=== PATIENT | female | born 2005 | race Caucasian/White ===

== ENCOUNTER 2024-10-30 07:54 | Emergency (ER) | payer BC ==
[2024-10-30 09:11] LABS: Absolute Basophils 0.1 K/uL (0-0.5); Absolute Eosinophils 0.2 K/uL (0-0.5); Absolute Lymphocytes (CBC) 1.6 K/uL (0.7-4.9); Absolute Monocytes 0.7 K/uL (0.1-1.3); Absolute Neutrophil 6.6 K/uL (1.8-8.0); Basophils % 0.7 % (0-1.3); Eosinophils % 1.7 % (0-4.4); Hematocrit 44.7 % (36.0-45.0); Hemoglobin 14.9 g/dL (12.0-15.0); Lymphocytes % 17.6 % (15.3-44.8); MCH 30.7 pg (27.0-35.0); MCHC 33.3 g/dL (32.0-36.0); MCV 92.1 fL (80-100); MPV 7.1 fL (7.6-11.3); Monocytes % 7.7 % (3.3-12.3); Neutrophils % 72.3 % (41.7-73.7); Nucleated Red Blood Cells % 0.1 % (0-0); Platelets 421 thou/uL (152-406); RBC Red Blood Cell Count 4.86 M/uL (3.86-4.86); Red Cell Distribution Width 13.6 % (12.1-15.2)
[2024-10-30 09:17] LABS: Specific Gravity 1.005 (1.005-1.030)
[2024-10-30 09:18] LABS: Specific Gravity 1.005 (1.005-1.030); Sqamous Epithelial <5 /HPF (None Seen); Urine Bacteria None Seen /HPF (<20); Urine Bilirubin NEGATIVE (Negative); Urine Blood Negative (Negative); Urine Clarity Turbid (Clear); Urine Color Colorless (Yellow); Urine Culture Reflex Order NOT NEEDED; Urine Glucose NEGATIVE (Negative); Urine Ketones NEGATIVE (Negative); Urine Microscopic Reflex YN ORDER UMIC; Urine Nitrite NEGATIVE (Negative); Urine Protein NEGATIVE (Negative); Urine RBC <5 /HPF (None Seen); Urine Urobilinogen Normal (Normal); Urine WBC <5 /HPF (<5)
[2024-10-30 09:26] LABS: Albumin 3.9 g/dL (3.4-5.0); Albumin/Globulin Ratio 0.9 (1.1-1.8); Anion Gap 9.9 mEq/L (5.0-15.0); Bilirubin Total 0.5 mg/dL (0.2-1.0); Globulin 4.3 g/dL (2.3-3.5); Potassium 3.9 mEq/L (3.5-5.1); Protein, Total 8.2 g/dL (6.4-8.2)
--- NOTE | 2024-10-30 11:37 | RAD REPORT ---
EXAM: CT CHEST, ABDOMEN AND PELVIS WITHOUT CONTRAST CLINICAL INDICATION: Female, 19 years old. Pain TECHNIQUE: CT chest, abdomen and pelvis was performed, without IV contrast, as per department protoco l. Axial, sagittal and coronal reconstructions were obtained. One or more of the following dose reduction techniques were used: Automated exposure control, adjustment of the mA and/or kV according to the patient size, and/or iterative reconstruction. Unless otherwise specified, incidental findings do not require dedicated imaging follow-up. COMPARISON: No prior exam. FINDINGS: The lack of intravenous contrast limits the sensitivity of this exam for evaluation of solid visceral organs, vascular structures, and retroperitoneum. Chest: LOWER NECK/CHEST WALL: Visualized thyroid gland and soft tissues are normal. LUNGS AND AIRWAYS: Airways are clear. No evidence of airspace or interstitial process. No nodules. PLEURA: No pleural effusion. No pneumothorax. Hemidiaphragms are normally positioned. MEDIASTINUM AND LYMPH NODES: No mediastinal mass or fluid collection. Normal size mediastinal, hilar, and axillary lymph nodes. THORACIC AORTA: Normal caliber and configuration. PULMONARY ARTERIES: Normal caliber. HEART: Unremarkable. Abdomen/Pelvis LIVER: Normal in size and contour. No focal lesion. GALLBLADDER/BILE DUCTS: No biliary ductal dilatation. PANCREAS: No mass, ductal dilation, or kita-pancreatic fluid. SPLEEN: Normal size. No focal lesion. ADRENALS: Normal; no mass. KIDNEYS AND URETERS: Normal size and contour. No hydronephrosis. GASTROINTESTINAL TRACT: Stomach is non-dilated. Small bowel has normal course and caliber. No colonic wall thickening or pericolonic inflammatory changes. PERITONEUM: No free fluid. LYMPH NODES: No lymphadenopathy. ABDOMINAL AORTA AND OTHER VESSELS: Normal caliber aorta and IVC. URINARY BLADDER: Normal contour. REPRODUCTIVE ORGANS: No pathologic process. MUSCULOSKELETAL: Healing right lateral sixth rib fracture. ADDITIONAL FINDINGS: None IMPRESSION: No acute or significant abnormalities in the chest, abdomen, or pelvis. Healing right lateral sixth rib fracture.
--- NOTE | 2024-10-30 12:04 | ER ---
Nurse's Notes [facility] Name: Nathaly Kirby Age: 19 yrs Sex: Female : 2005 Arrival Date: 10/30/2024 Time: 07:54 Bed 17 Private MD: Diagnosis: Abdominal tenderness, unspecified site;Disorder of muscle, unspecified Presentation: 10/30 08:10 Chief complaint: LUQ pain x 2 months. Coronavirus screen: At this time, the client does hb not indicate any symptoms associated with coronavirus-19. Ebola Screen: No symptoms or risks identified at this time. Initial Sepsis Screen: Does the patient meet any 2 criteria? No. Patient's initial sepsis screen is negative. Does the patient have a suspected source of infection? No. Patient's initial sepsis screen is negative. Risk Assessment: Do you want to hurt yourself or someone else? Patient reports no desire to harm self or others. Onset of symptoms was August 2024. 08:10 Method Of Arrival: Ambulatory hb 08:10 Acuity: AZAM 3 hb Historical: - Allergies: 08:13 No Known Allergies; hb - Home Meds: 08:13 None [Active]; hb - PMHx: 08:13 None; hb - PSHx: 08:13 None; hb - Immunization history:: Adult Immunizations up to date. - Infectious Disease History:: Denies. Screenin:20 [facility] ED Fall Risk Assessment (Adult) History of falling in the last 3 months, kc6 including since admission No falls in past 3 months (0 pts) Confusion or Disorientation No (0 pts) Intoxicated or Sedated No (0 pts) Impaired Gait No (0 pts) Mobility Assist Device Used No (0 pt) Altered Elimination No (0 pt) Score/Fall Risk Level 0 - 2 = Low Risk Oriented to surroundings, Maintained a safe environment, Educated pt \T\ family on fall prevention, incl call for assistance when getting out of bed. Abuse screen: Denies threats or abuse. Denies injuries from another. Nutritional screening: No deficits noted. Tuberculosis screening: No symptoms or risk factors identified. Assessment: 09:20 General: Appears in no apparent distress. comfortable, well groomed, well developed, kc6 Behavior is calm, cooperative, appropriate for age. Pain: Complains of pain in posterior aspect of left lateral abdomen and anterior aspect of left lateral abdomen. Neuro: Level of Consciousness is awake, alert, obeys commands, Oriented to person, place, time, situation, Appropriate for age. Cardiovascular: Capillary refill < 3 seconds. Respiratory: Airway is patent Trachea midline Respiratory effort is even, unlabored, Respiratory pattern is regular, symmetrical. GI: Abdomen is round non-distended, Bowel sounds present X 4 quads. Abd is soft in right upper quadrant and right lower quadrant Reports nausea, Patient currently denies diarrhea, vomiting. : No signs and/or symptoms were reported regarding the genitourinary system. Urine is clear. EENT: No signs and/or symptoms were reported regarding the EENT system. Derm: No signs and/or symptoms reported regarding the dermatologic system. Skin is intact, is healthy with good turgor, Skin is pink, warm \T\ dry. Musculoskeletal: No signs and/or symptoms reported regarding the musculoskeletal system. Circulation, motion, and sensation intact. Range of motion: intact in all extremities. 10:11 Reassessment: Patient appears in no apparent distress at this time. No changes from kc6 previously documented assessment. Patient and/or family updated on plan of care and expected duration. Pain level reassessed. Patient is alert, oriented x 3, equal unlabored respirations, skin warm/dry/pink. 11:08 Reassessment: Patient appears in no apparent distress at this time. No changes from kc6 previously documented assessment. Patient and/or family updated on plan of care and expected duration. Pain level reassessed. Patient is alert, oriented x 3, equal unlabored respirations, skin warm/dry/pink. 12:21 Reassessment: Patient appears in no apparent distress at this time. No changes from kc6 previously documented assessment. Patient and/or family updated on plan of care and expected duration. Pain level reassessed. Patient is alert, oriented x 3, equal unlabored respirations, skin warm/dry/pink. Vital Signs: 08:10 BP 129 / 77; Pulse 85; Resp 16; Temp 97.9(TE); Pulse Ox 100% on R/A; Weight 72.57 kg; hb Height 5 ft. 2 in. ; Pain 5/10; 10:11 BP 110 / 65; Pulse 75; Resp 18 S; Pulse Ox 98% on R/A; kc6 12:21 BP 112 / 62; Pulse 80; Resp 16 S; Pulse Ox 98% on R/A; kc6 08:10 Body Mass Index 29.26 (72.57 kg, 157.48 cm) hb 08:10 Pain Scale: Adult hb ED Course: 07:58 Patient arrived in ED. am2 08:04 Fatmata Campo RN is Primary Nurse. kc6 08:13 Triage completed. hb 08:13 Arm band placed on. hb 08:31 Hank Berger MD is Attending Physician. bo1 09:14 Initial lab(s) drawn, by me, sent to lab. Urine collected: clean catch specimen, clear. kc6 Inserted saline lock: 22 gauge in right antecubital area, using aseptic technique. Blood collected. Flushed with 10 mL NS. Patient maintains SpO2 saturation greater than 95% on room air. 09:20 Patient has correct armband on for positive identification. Bed in low position. Call kc6 light in reach. Side rails up X 1. Pulse ox on. NIBP on. Door closed. Noise minimized. Lights dimmed. Warm blanket given. Pillow given. Cool cloth applied. Verbal reassurance given. 11:18 CT Chest Abdomen Pelvis W/O Contrast In Process Unspecified. EDMS 12:22 No provider procedures requiring assistance completed. IV discontinued, intact, kc6 bleeding controlled, No redness/swelling at site. Pressure dressing applied. Administered Medications: No medications were administered Medication: 12:22 VIS not applicable for this client. kc6 Outcome: 12:03 Discharge ordered by . bo1 12:22 Discharged to home ambulatory, with family, kc6 12:22 Condition: good 12:22 Discharge instructions given to patient, Instructed on discharge instructions, follow up and referral plans. medication usage, Demonstrated understanding of instructions, follow-up care, medications, Prescriptions given X 2, 12:22 Patient left the ED. kc6 Signatures: Dispatcher [employer] EDMS Slime Harman RN RN Linda Velez am2 Fatmata Campo RN RN kc6 Hank Berger MD MD bo1
--- NOTE | 2024-10-30 12:04 | EDPHYS ---
Physician Documentation [facility] Name: Nathaly Kirby Age: 19 yrs Sex: Female : 2005 Arrival Date: 10/30/2024 Time: 07:54 Bed 17 Private MD: ED Physician Hank Berger HPI: 10/30 10:20 This 19 yrs old Female presents to ER via Ambulatory with complaints of Abdominal Pain. bo1 10:39 Left upper abd pain. Onset: The symptoms/episode began/occurred gradually, 2.5 month(s) bo1 ago. Severity of symptoms: At their worst the symptoms were mild. The patient has experienced similar episodes in the past. Not had any untoward sxs but occasionally interrupts sleep/rest. Historical: - Allergies: 08:13 No Known Allergies; hb - Home Meds: 08:13 None [Active]; hb - PMHx: 08:13 None; hb - PSHx: 08:13 None; hb - Immunization history:: Adult Immunizations up to date. - Infectious Disease History:: Denies. ROS: 10:41 Constitutional: Negative for fever, chills, and weight loss bo1 10:41 Neck: Negative for pain with movement, pain at rest, 10:41 Cardiovascular: Negative for chest pain, bo1 10:41 Respiratory: Negative for cough, shortness of breath, 10:41 Abdomen/GI: Positive for abdominal pain, of the left upper quadrant, Negative for nausea and vomiting, diarrhea, 10:41 Back: Negative for pain at rest, pain with movement, 10:41 MS/extremity: Negative for acute changes, swelling, 10:41 Skin: Negative for rash, 10:41 All other systems are negative, Exam: 10:42 Constitutional: This is a well developed, well nourished patient who is awake, alert, bo1 and in no acute distress. 10:42 Constitutional: The patient appears in no acute distress, alert, awake, comfortable, non-toxic, 10:42 Neck: External neck: is normal, no acute changes, 10:42 Cardiovascular: Rate: normal, Pulses: no pulse deficits are appreciated, 10:42 Respiratory: the patient does not display signs of respiratory distress, Breath sounds: are clear throughout, 10:42 Abdomen/GI: Palpation: soft, mild abdominal tenderness, in the left upper quadrant, rebound tenderness, is not appreciated, 10:42 Back: CVA tenderness, is absent, 10:42 : CVA tenderness, is absent, 10:42 Musculoskeletal/extremity: Extremities: all appear grossly normal, with no appreciated pain with palpation, 10:42 Skin: no rash present. Vital Signs: 08:10 BP 129 / 77; Pulse 85; Resp 16; Temp 97.9(TE); Pulse Ox 100% on R/A; Weight 72.57 kg; hb Height 5 ft. 2 in. ; Pain 5/10; 10:11 BP 110 / 65; Pulse 75; Resp 18 S; Pulse Ox 98% on R/A; kc6 12:21 BP 112 / 62; Pulse 80; Resp 16 S; Pulse Ox 98% on R/A; kc6 08:10 Body Mass Index 29.26 (72.57 kg, 157.48 cm) hb 08:10 Pain Scale: Adult hb MDM: 08:31 Medical Screening Exam initiated bo1 11:59 Differential Diagnosis Musculoskeletal pain, strain or other non-specific cause to the bo1 LUQ abd pain. Trial of NSAIDs and muscle relaxant. Data reviewed: vital signs, lab test result(s), radiologic studies, CT scan. ED course: F/U as OP. Trial of Rx meds. Unlikely a life or limb threatening condition. 10/30 08:44 Order name: CBC with Diff; Complete Time: 09:53 bo1 10/30 08:44 Order name: CMP; Complete Time: 09:53 bo1 10/30 08:44 Order name: Lipase; Complete Time: 09:53 bo1 10/30 08:44 Order name: Test, Urine; Complete Time: 09:53 bo1 10/30 08:44 Order name: Urinalysis w/ reflexes; Complete Time: 09:53 bo1 10/30 10:21 Order name: CT Chest Abdomen Pelvis W/O Contrast; Complete Time: 11:42 bo1 10/30 08:44 Order name: IV Saline Lock; Complete Time: 09:14 bo1 10/30 08:44 Order name: Labs collected and sent; Complete Time: 09:14 bo1 Administered Medications: No medications were administered Disposition Summary: 10/30/24 12:03 Discharge Ordered Notes: Location: Home bo1 Problem: chronic bo1 Symptoms: are unchanged bo1 Condition: Stable bo1 Diagnosis - Abdominal tenderness, unspecified site bo1 - Disorder of muscle, unspecified bo1 Followup: bo1 - With: Private Physician - When: Upon discharge from the Emergency Department - Reason: Recheck today's complaints, Continuance of care Discharge Instructions: - Discharge Summary Sheet bo1 - Abdominal Pain, Adult bo1 - Abdominal Pain, Adult, [id number] bo1 Forms: - Medication Reconciliation Form bo1 - Antibiotic Education bo1 - Prescription Opioid Use bo1 - Patient Portal Instructions bo1 - Leadership Thank You Letter bo1 Prescriptions: - ketorolac 10 mg Oral tablet - take 1 tablet ORAL route 4 times per day for 5 days as needed for pain; 20 bo1 tablet; Refills: 0, Product Selection Permitted - Cyclobenzaprine 10 mg Oral Tablet - take 1 tablet ORAL route every 8 hours As needed; 30 tablet; Refills: 0, bo1 Product Selection Permitted Signatures: Dispatcher [employer] EDMS Slime Harman RN RN Oei, MD HERRERA Mckinney bo1 Corrections: (The following items were deleted from the chart) 08:45 08:45 CBC+H.LAB.BRZ ordered. EDMS EDMS 08:45 08:45 COMPREHENSIVE METABOLIC PANEL+C.LAB.BRZ ordered. EDMS EDMS 08:45 08:45 LIPASE+C.LAB.BRZ ordered. EDMS EDMS 08:45 08:45 Test, Urine+UC.LAB.BRZ ordered. EDMS EDMS 08:45 08:45 Urinalysis+U.LAB.BRZ ordered. EDMS EDMS 10:22 10:22 Chest Abdomen Pelvis Wo Con+CT.RAD.BRZ ordered. EDMS EDMS
[2024-10-30 13:08] VITALS: TEMP 97.9
[2024-10-30 13:14] VITALS: O2SAT 98
[2024-10-30 13:15] VITALS: BP 112/62
== END 2024-10-30 12:22 | disposition home or self-care (01) ==
LOC: ER 07:54
DX: R10.812 Left upper quadrant abdominal tenderness (principal); M62.9 Disorder of muscle, unspecified
CPT/HCPCS: 36415; 71250; 74176; 80053; 81001; 81025; 83690; 85025; 99284

== ENCOUNTER 2025-06-05 16:26 | Emergency (ER) | payer BC ==
--- NOTE | 2025-06-05 17:38 | ER ---
Nurse's Notes [facility] Name: Nathaly Kirby Age: 20 yrs Sex: Female : 2005 Arrival Date: 06/05/2025 Time: 16:26 Bed 11 Private MD: Diagnosis: Insect bite of unspecified part of neck, initial encounter Presentation: 06/05 17:15 Chief complaint: Patient states: SHE FELT A STING AND SISTER FOUND ASP ON BACK OF HER dd2 NECK THAT OCCURRED AT ABOUT 3:30. Patient placed ice pack with mild relief. Patient denies chest pain, headache, neck pain. Coronavirus screen: At this time, the client does not indicate any symptoms associated with coronavirus-19. Ebola Screen: Patient negative for fever greater than or equal to 101.5 degrees Fahrenheit, and additional compatible Ebola Virus Disease symptoms Patient denies exposure to infectious person. Patient denies travel to an Ebola-affected area in the 21 days before illness onset. No symptoms or risks identified at this time. Initial Sepsis Screen: Does the patient meet any 2 criteria? No. Patient's initial sepsis screen is negative. Does the patient have a suspected source of infection? No. Patient's initial sepsis screen is negative. Risk Assessment: Do you want to hurt yourself or someone else? Patient reports no desire to harm self or others. Onset of symptoms was June 05, 2025 at 15:30. 17:15 Method Of Arrival: Ambulatory dd2 17:15 Acuity: AZAM 4 dd2 Triage Assessment: 17:29 Bite description: bite sustained to back of neck by a caterpillar, animal information: dd2 vaccination(s) is not applicable. General: Appears in no apparent distress. uncomfortable, Behavior is calm, cooperative, appropriate for age. Pain: Complains of pain in back of neck. Historical: - Allergies: 17:21 No Known Allergies; dd2 - Immunization history:: Adult Immunizations up to date. - Infectious Disease History:: Denies. - Social history:: Smoking status: Reported history of juuling and/or vaping. Screenin:25 [facility] ED Fall Risk Assessment (Adult) History of falling in the last 3 months, jb4 including since admission No falls in past 3 months (0 pts) Confusion or Disorientation No (0 pts) Intoxicated or Sedated No (0 pts) Impaired Gait No (0 pts) Mobility Assist Device Used No (0 pt) Altered Elimination No (0 pt) Score/Fall Risk Level 0 - 2 = Low Risk Oriented to surroundings, Maintained a safe environment. Abuse screen: Denies threats or abuse. Nutritional screening: No deficits noted. Tuberculosis screening: No symptoms or risk factors identified. Assessment: 18:25 General: Appears in no apparent distress. comfortable, Behavior is calm, cooperative, jb4 appropriate for age. Pain: Complains of pain in base of the skull Pain does not radiate. Pain currently is 6 out of 10 on a pain scale. Neuro: Level of Consciousness is awake, alert, obeys commands, Oriented to person, place, time, situation. Cardiovascular: Patient's skin is warm and dry. Respiratory: Airway is patent Respiratory effort is even, unlabored, Respiratory pattern is regular, symmetrical. Derm: Skin is intact, Skin is pink, warm \T\ dry. Musculoskeletal: Circulation, motion, and sensation intact. Range of motion: intact in all extremities. Injury Description: Bite sustained to base of the skull caused by a caterpillar, is superficial, from animal, reddened. Vital Signs: 17:15 Pulse 64; Resp 18; Temp 98.2; Pulse Ox 99% ; Weight 72.57 kg; Height 5 ft. 2 in. ; Pain dd2 6/10; 17:21 BP 124 / 90; dd2 17:15 Body Mass Index 29.26 (72.57 kg, 157.48 cm) dd2 17:15 Pain Scale: Adult dd2 ED Course: 16:31 Patient arrived in ED. al6 16:31 [facility] 16:31 Orlando Garcia MD is Attending Physician. dr5 17:20 Triage completed. dd2 17:29 Arm band placed on. dd2 18:25 Sage Quintero, BELLO is Primary Nurse. jb4 18:25 Patient has correct armband on for positive identification. Bed in low position. Call jb4 light in reach. Side rails up X 1. Provided Education on: plan of care. 18:25 No provider procedures requiring assistance completed. Patient did not have IV access jb4 during this emergency room visit. Administered Medications: 18:20 Drug: Dexamethasone IM 10 mg IM once Route: IM; Site: right gluteus; jb4 18:20 Follow up: Response: Medication administered at discharge. jb4 18:20 Drug: Ibuprofen PO 800 mg PO once Route: PO; jb4 18:20 Follow up: Response: Medication administered at discharge. jb4 Medication: 18:25 VIS not applicable for this client. jb4 Outcome: 17:38 Discharge ordered by . renard 18:25 Discharged to home ambulatory, with family, jb4 18:25 Condition: stable 18:25 Discharge instructions given to patient, Instructed on discharge instructions, follow up and referral plans. medication usage, Demonstrated understanding of instructions, follow-up care, medications, Prescriptions given X 1, 18:27 Patient left the ED. jb4 Signatures: Sage Quintero RN RN jb4 PARVIN LENZ RN RN dd2 Salinas Slaughter, DRILL [employer]ESS HAND-C DRILL PRESS HAND-5 Diaan Devi Corrections: (The following items were deleted from the chart) 18:26 18:25 Discharge instructions given to patient, Instructed on discharge instructions, jb4 follow up and referral plans. Demonstrated understanding of instructions, follow-up care, jb4
--- NOTE | 2025-06-05 17:38 | EDPHYS ---
Physician Documentation [facility] Name: Nathaly Kirby Age: 20 yrs Sex: Female : 2005 Arrival Date: 06/05/2025 Time: 16:26 Bed 11 Private MD: ED Physician Orlando Garcia HPI: 06/05 19:48 This 20 yrs old Female presents to ER via Ambulatory with complaints of dr5 Insect Bite. 19:48 Onset: The symptoms/episode began/occurred acutely. Patient is a 20-year-old female dr5 coming in for insect bite (caterpillar) to the back of her neck that happened 2 hours ago. Patient denies fever, abdominal pain, nausea, vomit, diarrhea.. Historical: - Allergies: 17:21 No Known Allergies; dd2 - Immunization history:: Adult Immunizations up to date. - Infectious Disease History:: Denies. - Social history:: Smoking status: Reported history of juuling and/or vaping. ROS: 19:48 Constitutional: as per hpi dr5 Exam: 19:48 Constitutional: This is a well developed, well nourished patient who is awake, alert, dr5 and in no acute distress. Head/Face: Normocephalic, atraumatic. Eyes: Pupils equal round and reactive to light, extra-ocular motions intact. Lids and lashes normal. Conjunctiva and sclera are non-icteric and not injected. Cornea within normal limits. Periorbital areas with no swelling, redness, or edema. Neck: Trachea midline, no thyromegaly or masses palpated, and no cervical lymphadenopathy. Supple, full range of motion without nuchal rigidity, or vertebral point tenderness. No Meningismus. Chest/axilla: Normal chest wall appearance and motion. Nontender with no deformity. No lesions are appreciated. Cardiovascular: Regular rate and rhythm with a normal S1 and S2. Normal PMI, no JVD. No pulse deficits. Respiratory: Lungs have equal breath sounds bilaterally, clear to auscultation. No rales, rhonchi or wheezes noted. No increased work of breathing, no retractions or nasal flaring. Back: No spinal tenderness. No costovertebral tenderness. Full range of motion. Skin: Warm, dry with normal turgor. Normal color with no rashes, no lesions, and no evidence of cellulitis. Redness noted to the back of her neck consistent with insect sting. MS/ Extremity: Pulses equal, no cyanosis. Neurovascular intact. Full, normal range of motion. Neuro: Awake and alert, GCS 15, oriented to person, place, time, and situation. Cranial nerves II-XII grossly intact. Motor strength 5/5 in all extremities. Sensory grossly intact. Cerebellar exam normal. Normal gait. Vital Signs: 17:15 Pulse 64; Resp 18; Temp 98.2; Pulse Ox 99% ; Weight 72.57 kg; Height 5 ft. 2 in. ; Pain dd2 6/10; 17:21 BP 124 / 90; dd2 17:15 Body Mass Index 29.26 (72.57 kg, 157.48 cm) dd2 17:15 Pain Scale: Adult dd2 MDM: 16:31 Medical Screening Exam initiated dr5 19:48 Differential diagnosis: abrasion, sprain, strain, Insect Sting. Data reviewed: vital dr5 signs, nurses notes. Consideration of Admission/Observation Escalation of care including admission/observation considered. Escalation considered patient found to have cellulitis or abscess. I considered the following discharge prescriptions or medication management in the emergency department I discussed and recommended Over The Counter medications, Medications were administered in the Emergency Department. See MAR. Care significantly affected by the following Social Determinants of Health: Poor access to healthcare and/or lack of insurance, Poor access to transportation, Problems related to employment. Counseling: I had a detailed discussion with the patient and/or guardian regarding the historical points, exam findings, and any diagnostic results supporting the discharge/admit diagnosis, the presence of at least one elevated blood pressure reading (>120/80) during this emergency department visit, the need for outpatient follow up, for definitive care, a family practitioner, to return to the emergency department if symptoms worsen or persist or if there are any questions or concerns that arise at home. Medication response: Dexamethasone, ibuprofen. Response to treatment: the patient's symptoms have resolved after treatment. Special discussion: I discussed with the patient/guardian in detail that at this point there is no indication for admission to the hospital. It is understood, however, that if the symptoms persist or worsen the patient needs to return immediately for re-evaluation. Based on the history and exam findings, there is no indication for further emergent testing or inpatient evaluation. I discussed with the patient/guardian the need to see the primary care provider for further evaluation of the symptoms. ED course: Recommended increasing hydration, alternate Tylenol Motrin as needed for pain. Recommended antihistamines and will give patient steroid Dosepak. All questions answered.. Administered Medications: 18:20 Drug: Dexamethasone IM 10 mg IM once Route: IM; Site: right gluteus; jb4 18:20 Follow up: Response: Medication administered at discharge. jb4 18:20 Drug: Ibuprofen PO 800 mg PO once Route: PO; jb4 18:20 Follow up: Response: Medication administered at discharge. jb4 Disposition Summary: 06/05/25 17:38 Discharge Ordered Notes: Location: Home dr5 Condition: Stable dr5 Diagnosis - Insect bite of unspecified part of neck, initial encounter dr5 Followup: dr5 - With: Emergency Department - When: As needed - Reason: Worsening of condition Followup: dr5 - With: Private Physician - When: 1 - 2 days - Reason: Recheck today's complaints, Continuance of care, Re-evaluation by your physician Discharge Instructions: - Discharge Summary Sheet dr5 - Insect Bite, Adult dr5 Forms: - Medication Reconciliation Form dr5 - Patient Portal Instructions dr5 - Leadership Thank You Letter dr5 Prescriptions: - Medrol (Travis) 4 mg Oral Tablets, Dose Pack - take 1 tablet ORAL route as directed - follow package instructions; 1 packet; dr5 Refills: 0, Product Selection Permitted Signatures: Sage Quintero RN RN jb4 PARVIN LENZ RN RN dd2 Salinas Slaughter, [employer]-C [employer]-Cdr5
[2025-06-05] MEDS ORDERED: IBUPROFEN 400 MG TAB ONE ×2 (18:04→18:10)
[2025-06-06 01:08] VITALS: TEMP 98.2; O2SAT 99
[2025-06-06 01:09] VITALS: BP 124/90
== END 2025-06-05 18:27 | disposition home or self-care (01) ==
LOC: ER 16:26
DX: S10.86XA Insect bite of other specified part of neck, initial encounter (principal)
CPT/HCPCS: 96372; 99284; J1100